=== PATIENT | male | born 1940 | race Caucasian/White ===

== ENCOUNTER 2019-03-14 16:49 | Inpatient (IN) | payer OTHER ==
[~2019-03-14] VITALS: Ht 182.9 cm; Wt 104.1 kg
[2019-03-14] MEDS ORDERED: VANCOMYCIN PER PHARMACY MC ONE (17:00)
[2019-03-14] MEDS ORDERED: SODIUM CHLORIDE 0.9% 1,000ML IVBOLUS ONE ×2 (17:00→20:00)
[2019-03-14] MEDS ORDERED: PIPERACILLIN/TAZO/PMX 3.375GM 50 ML IVPB ONE (17:00)
--- NOTE | 2019-03-14 17:27 | NUR ---
PT PRESENTS WITH CONDOM CATH IN PLACE. BAG CONTAINS DARK CLOUDY URINE
[2019-03-14] MEDS ORDERED: PHARMACOKINETIC CONSULTATION MC ONE (17:30)
[2019-03-14 17:33] LABS: MEAN CORPUSCULAR HEMOGLOBIN 25.9 pg (27.5-34.5); MEAN CORPUSCULAR HGB CONC 32.6 g/dL (33.2-36.2); MEAN CORPUSCULAR VOLUME 79.3 fL (81-97); MEAN PLATELET VOLUME 7.7 fL (7.4-10.4); PLATELET COUNT 553 x10^3/uL (130-400); RED BLOOD COUNT 3.98 x10^6/uL (4.38-5.82); RED CELL DISTRIBUTION WIDTH 21.9 % (9.4-14.8)
[2019-03-14] MEDS ORDERED: PIPERACILLIN/TAZO/PMX 3.375GM 50 ML ONE (17:41)
[2019-03-14 17:46] LABS: INTERNATIONAL NORMALIZED RATIO 1.27 (0.93-1.1); PROTHROMBIN TIME 13.2 Seconds (9.6-11.5)
[2019-03-14 17:47] LABS: ALANINE AMINOTRANSFERASE 17 U/L (12-78); ALBUMIN 2.9 g/dL (3.4-5.0); ANION GAP 11 mmol/L (5-15); CALCIUM 8.7 mg/dL (8.5-10.1); CHLORIDE 95 mmol/L (98-107)
[2019-03-14 17:49] LABS: ALKALINE PHOSPHATASE 81 U/L (45-117); BILIRUBIN,TOTAL 0.7 mg/dL (0.2-1.0); TOTAL PROTEIN 6.4 g/dL (6.4-8.2)
[2019-03-14 17:53] LABS: CULTURE INDICATED? YES; MICROSCOPIC INDICATED
[2019-03-14] MEDS ORDERED: VANCOMYCIN 2,000 MG in SODIUM CHLORIDE 0.9% 500 ML IV ONE (18:00)
[2019-03-14 18:09] LABS: MD YES
[2019-03-14 18:11] LABS: BAND#(MANUAL) 1.44 x10^3/uL; BANDS%(MANUAL) 8 % (0-7); BASOS#(MANUAL) 0.18 x10^3/uL (0-0.1); BASOS% (MANUAL) 1 % (0-1); LYMPH#(MANUAL) 0.36 x10^3/uL (1-3.4); LYMPHS% (MANUAL) 2 % (22-44); MONOS#(MANUAL) 1.26 x10^3/uL (0.3-2.7); MONOS% (MANUAL) 7 % (2-9); SEG#(MANUAL) 14.76 x10^3/uL (1.8-6.8); SEGS% (MANUAL) 82 % (42-75)
[2019-03-14 18:12] LABS: ANISOCYTOSIS 2+; MICROCYTOSIS 1+
[2019-03-14 18:13] LABS: <PLATELET ESTIMATE> INCREASED; OVALOCYTES 1+
[2019-03-14 18:14] LABS: <PLT MORPHOLOGY> NORMAL PLT MORPH; POLYCHROMASIA 1+
--- NOTE | 2019-03-14 19:08 | NUR ---
per admitting provider 2nd ns bolus initiated
[2019-03-14] MEDS: SODIUM CHLORIDE 0.9% 1,000 ML IV SCH (19:09)
--- NOTE | 2019-03-14 19:18 | NUR ---
late note 1727 this pt bib [facility] was diverted by the [facility]. [facility] was told by the [facility] that they are full and have no admitting capability.
[2019-03-14] MEDS ORDERED: POLYETHYLENE GLYCOL 17 GM PACKET PO PRN (19:30)
[2019-03-14] MEDS ORDERED: ONDANSETRON ODT 4 MG PO PRN (19:30)
[2019-03-14] MEDS ORDERED: BISACODYL 10 MG SUPP PR PRN (19:30)
[2019-03-14 19:52] LABS: HEMOGLOBIN A1C 6.2 % (4.2-6.3)
[2019-03-14] MEDS ORDERED: CEFTRIAXONE PMX 1GM/50ML 50 ML IV SCH (20:00)
[2019-03-14 21:15] VITALS: BP 111/56
[2019-03-14] MEDS: HEPARIN 5,000 UNITS/ML, 1ML SQ SCH (22:53)
[2019-03-14] MEDS: ACETAMINOPHEN 325 MG TABLET PO PRN (22:53)
[2019-03-15 02:59] VITALS: BP 93/58
[2019-03-15 05:31] LABS: CHLORIDE 100 mmol/L (98-107)
[2019-03-15 05:34] LABS: MEAN CORPUSCULAR HEMOGLOBIN 25.9 pg (27.5-34.5); MEAN CORPUSCULAR HGB CONC 32.6 g/dL (33.2-36.2); MEAN CORPUSCULAR VOLUME 79.3 fL (81-97); MEAN PLATELET VOLUME 7.7 fL (7.4-10.4); PLATELET COUNT 529 x10^3/uL (130-400); RED BLOOD COUNT 3.65 x10^6/uL (4.38-5.82)
[2019-03-15 05:38] LABS: ALANINE AMINOTRANSFERASE 20 U/L (12-78); ALBUMIN 2.7 g/dL (3.4-5.0); ALKALINE PHOSPHATASE 78 U/L (45-117); ANION GAP 6 mmol/L (5-15); BILIRUBIN,TOTAL 0.8 mg/dL (0.2-1.0); CALCIUM 8.4 mg/dL (8.5-10.1); CREATININE 1.51 mg/dL (0.7-1.3); TOTAL PROTEIN 5.9 g/dL (6.4-8.2)
[2019-03-15 05:53] LABS: MD YES
[2019-03-15 05:55] LABS: BAND#(MANUAL) 0.59 x10^3/uL; BANDS%(MANUAL) 5 % (0-7); BASOS#(MANUAL) 0.12 x10^3/uL (0-0.1); BASOS% (MANUAL) 1 % (0-1); LYMPH#(MANUAL) 0.12 x10^3/uL (1-3.4); LYMPHS% (MANUAL) 1 % (22-44); MONOS#(MANUAL) 0.12 x10^3/uL (0.3-2.7); MONOS% (MANUAL) 1 % (2-9); SEG#(MANUAL) 10.86 x10^3/uL (1.8-6.8); SEGS% (MANUAL) 92 % (42-75)
[2019-03-15 05:56] LABS: <PLATELET ESTIMATE> INCREASED; <PLT MORPHOLOGY> NORMAL PLT MORPH; ANISOCYTOSIS 1+; MICROCYTOSIS 1+; OVALOCYTES 1+; POLYCHROMASIA 1+
[2019-03-15] MEDS: ACETAMINOPHEN 325 MG TABLET PO PRN (07:07)
[2019-03-15] MEDS: HEPARIN 5,000 UNITS/ML, 1ML SQ SCH ×2 (07:07→15:41)
[2019-03-15] MEDS: SODIUM CHLORIDE 0.9% 1,000 ML IV SCH ×2 (07:08→15:41)
[2019-03-15 08:18] VITALS: BP 125/69
[2019-03-15] MEDS: SENNA/DOCUSATE TABLET PO SCH (09:04)
[2019-03-15] MEDS: CEFTRIAXONE PMX 2GM/50ML 50 ML IV SCH (09:46)
[2019-03-15] MEDS: IRON SUCROSE COMPLEX 100MG/5ML IV SCH (09:46)
[2019-03-15 12:49] VITALS: BP 111/60
[2019-03-15] MEDS: INSULIN LISPRO 100 UNITS/ML, PEN SQ-INSULIN SCH ×2 (16:00→21:18)
[2019-03-15] MEDS ORDERED: ACET650T59 PO (16:06)
[2019-03-15] MEDS ORDERED: ASPI-515 PO (16:06)
[2019-03-15] MEDS ORDERED: ZOLP10TA5 PO (16:30)
[2019-03-15] MEDS ORDERED: NITR0.4T28 SL (16:30)
[2019-03-15] MEDS ORDERED: LORA-247 PO (16:30)
[2019-03-15] MEDS ORDERED: MENT3.5O EXT (16:30)
[2019-03-15] MEDS ORDERED: GABA600T7 PO (16:30)
[2019-03-15] MEDS ORDERED: DEXT15DR18 EACHEYE (16:30)
[2019-03-15] MEDS ORDERED: FINA5TAB4 PO (16:30)
[2019-03-15] MEDS ORDERED: METO25TA35 PO (16:30)
[2019-03-15] MEDS ORDERED: METF500T17 PO (16:30)
[2019-03-15] MEDS ORDERED: TAMS-11 PO (16:30)
[2019-03-15] MEDS ORDERED: OMEP-110 PO (16:30)
[2019-03-15] MEDS ORDERED: LISI40TA PO (16:30)
[2019-03-15] MEDS ORDERED: VENL75TA PO (16:30)
[2019-03-15] MEDS ORDERED: CALC1TAB62 PO (16:30)
[2019-03-15] MEDS ORDERED: GUAI200T3 PO (16:30)
[2019-03-15] MEDS ORDERED: DOCU100C33 PO (16:30)
[2019-03-15] MEDS ORDERED: METH500T7 PO (16:30)
[2019-03-15] MEDS ORDERED: MAGN420T PO (16:30)
[2019-03-15] MEDS ORDERED: OMEG1CAP25 PO (16:30)
[2019-03-15] MEDS ORDERED: ATOR10TA9 PO (16:30)
[2019-03-15] MEDS ORDERED: FERR324T5 PO (16:30)
[2019-03-15] MEDS: ARTIFICIAL TEARS 15 DROP/ML BOTTLE EACHEYE SCH ×2 (17:00→21:14)
[2019-03-15] MEDS ORDERED: ACETAMINOPHEN 325 MG TABLET PO PRN (17:00)
[2019-03-15 19:41] VITALS: BP 129/63
[2019-03-15] MEDS ORDERED: OMEGA-3/FISH OIL CAPSULE PO SCH (21:00)
[2019-03-15] MEDS: FERROUS GLUCONATE 324 MG TABLET PO SCH (21:14)
[2019-03-15] MEDS: METOPROLOL TARTRATE 25 MG TABLET PO SCH (21:15)
[2019-03-15] MEDS: ATORVASTATIN 10 MG TABLET PO SCH (21:15)
[2019-03-15] MEDS: GABAPENTIN 300 MG CAPSULE PO SCH (21:17)
[2019-03-15] MEDS: GUAIFENESIN 200 MG TABLET PO SCH (21:17)
[2019-03-15] MEDS: METHOCARBAMOL 500 MG TABLET PO SCH (21:17)
[2019-03-15] MEDS: ZOLPIDEM 10MG TABLET PO SCH (22:16)
[2019-03-16 00:19] VITALS: BP 114/81
[2019-03-16] MEDS: SODIUM CHLORIDE 0.9% 1,000 ML IV SCH ×3 (00:24→17:19)
[2019-03-16] MEDS: HEPARIN 5,000 UNITS/ML, 1ML SQ SCH ×3 (00:24→16:48)
[2019-03-16] MEDS: ARTIFICIAL TEARS 15 DROP/ML BOTTLE EACHEYE SCH ×4 (05:59→21:13)
[2019-03-16 06:14] LABS: MEAN CORPUSCULAR HEMOGLOBIN 25.7 pg (27.5-34.5); MEAN CORPUSCULAR HGB CONC 32.3 g/dL (33.2-36.2); MEAN CORPUSCULAR VOLUME 79.4 fL (81-97); MEAN PLATELET VOLUME 7.8 fL (7.4-10.4); PLATELET COUNT 471 x10^3/uL (130-400); RED BLOOD COUNT 3.54 x10^6/uL (4.38-5.82); RED CELL DISTRIBUTION WIDTH 21.9 % (9.4-14.8)
[2019-03-16 06:27] LABS: CHLORIDE 103 mmol/L (98-107)
[2019-03-16 06:33] LABS: ANION GAP 8 mmol/L (5-15); CREATININE 0.97 mg/dL (0.7-1.3)
[2019-03-16] MEDS: INSULIN LISPRO 100 UNITS/ML, PEN SQ-INSULIN SCH ×4 (07:00→21:15)
[2019-03-16 07:13] VITALS: BP 124/62
[2019-03-16 07:22] LABS: MD YES
[2019-03-16 07:23] LABS: BASOS#(MANUAL) 0.09 x10^3/uL (0-0.1); BASOS% (MANUAL) 1 % (0-1); EOS#(MANUAL) 0.09 x10^3/uL (0.0-0.4); EOS% (MANUAL) 1 % (1-7); LYMPH#(MANUAL) 0.35 x10^3/uL (1-3.4); LYMPHS% (MANUAL) 4 % (22-44); MONOS#(MANUAL) 0.44 x10^3/uL (0.3-2.7); MONOS% (MANUAL) 5 % (2-9); SEG#(MANUAL) 7.83 x10^3/uL (1.8-6.8); SEGS% (MANUAL) 89 % (42-75)
[2019-03-16 07:25] LABS: <PLATELET ESTIMATE> INCREASED; ANISOCYTOSIS 1+; LARGE PLATELETS 1+; MICROCYTOSIS 1+; OVALOCYTES 1+; POLYCHROMASIA 1+
[2019-03-16 07:26] LABS: TEAR DROPS 1+
[2019-03-16] MEDS ORDERED: ZINC OXIDE EXT SCH (09:00)
[2019-03-16] MEDS ORDERED: LISINOPRIL 40 MG TABLET PO SCH (09:00)
[2019-03-16] MEDS: SENNA/DOCUSATE TABLET PO SCH (09:00)
[2019-03-16] MEDS ORDERED: MENTHOL EXT SCH (09:00)
[2019-03-16] MEDS: CALCIUM CARBONATE 500 MG PO SCH (09:00)
[2019-03-16] MEDS: CEFTRIAXONE PMX 2GM/50ML 50 ML IV SCH (09:12)
[2019-03-16] MEDS: METOPROLOL TARTRATE 25 MG TABLET PO SCH ×2 (09:13→21:14)
[2019-03-16] MEDS: GABAPENTIN 300 MG CAPSULE PO SCH ×2 (09:13→21:14)
[2019-03-16] MEDS: OMEGA-3/FISH OIL CAPSULE PO SCH ×2 (09:14→21:13)
[2019-03-16] MEDS: METHOCARBAMOL 500 MG TABLET PO SCH ×2 (09:15→21:14)
[2019-03-16] MEDS: FINASTERIDE 5 MG TABLET PO SCH (09:15)
[2019-03-16] MEDS: GUAIFENESIN 200 MG TABLET PO SCH ×2 (09:16→21:14)
[2019-03-16] MEDS: DOCUSATE 100 MG CAPSULE PO SCH (09:16)
[2019-03-16] MEDS: MAGNESIUM OXIDE 400 MG TABLET PO SCH (09:17)
[2019-03-16] MEDS: TAMSULOSIN 0.4 MG CAP.ER.24H PO SCH (09:18)
[2019-03-16] MEDS: ASPIRIN 81 MG TABLET EC PO SCH (09:18)
[2019-03-16] MEDS: VENLAFAXINE 75MG TABLET PO SCH (09:18)
[2019-03-16] MEDS: FERROUS GLUCONATE 324 MG TABLET PO SCH ×2 (09:18→21:13)
[2019-03-16] MEDS: LORATADINE 10 MG TABLET PO SCH (09:19)
[2019-03-16] MEDS: OMEPRAZOLE 20 MG CAPSULE.DR PO SCH (09:19)
[2019-03-16] MEDS: IRON SUCROSE COMPLEX 100MG/5ML IV SCH (09:19)
[2019-03-16 13:03] VITALS: BP 108/61
[2019-03-16] MEDS ORDERED: METOPROLOL 1 MG/ML, 5ML ONE (18:05)
[2019-03-16] MEDS ORDERED: METOPROLOL 1 MG/ML, 5ML IVPush ONE (18:30)
[2019-03-16 18:33] VITALS: BP 113/70
[2019-03-16 18:39] LABS: TROPONIN I < 0.015 ng/mL (0.000-0.045)
[2019-03-16 20:04] VITALS: BP 109/65
[2019-03-16] MEDS ORDERED: METOPROLOL 1 MG/ML, 5ML IVPush STA (20:51)
[2019-03-16 21:08] VITALS: BP 117/69
[2019-03-16] MEDS: ATORVASTATIN 10 MG TABLET PO SCH (21:14)
[2019-03-16] MEDS: ACETAMINOPHEN 325 MG TABLET PO PRN (22:25)
[2019-03-16] MEDS: ZOLPIDEM 10MG TABLET PO SCH (22:26)
[2019-03-17 01:14] VITALS: BP 98/64
[2019-03-17] MEDS: HEPARIN 5,000 UNITS/ML, 1ML SQ SCH ×3 (01:54→17:53)
[2019-03-17] MEDS ORDERED: FUROSEMIDE 20 MG/2 ML IV ONE (02:00)
[2019-03-17 02:47] VITALS: BP 98/62
[2019-03-17] MEDS: ARTIFICIAL TEARS 15 DROP/ML BOTTLE EACHEYE SCH ×4 (05:52→21:59)
[2019-03-17 05:56] LABS: ANION GAP 7 mmol/L (5-15); CALCIUM 8.3 mg/dL (8.5-10.1); CHLORIDE 102 mmol/L (98-107)
[2019-03-17 05:57] LABS: CREATININE 0.96 mg/dL (0.7-1.3)
[2019-03-17 06:37] LABS: MD YES; MEAN CORPUSCULAR HEMOGLOBIN 25.6 pg (27.5-34.5); MEAN CORPUSCULAR HGB CONC 32.6 g/dL (33.2-36.2); MEAN CORPUSCULAR VOLUME 78.3 fL (81-97); PLATELET COUNT 489 x10^3/uL (130-400); RED BLOOD COUNT 3.77 x10^6/uL (4.38-5.82); RED CELL DISTRIBUTION WIDTH 21.7 % (9.4-14.8)
[2019-03-17 06:40] LABS: BAND#(MANUAL) 0.24 x10^3/uL; BANDS%(MANUAL) 3 % (0-7); BASOS#(MANUAL) 0.16 x10^3/uL (0-0.1); BASOS% (MANUAL) 2 % (0-1); EOS#(MANUAL) 0.32 x10^3/uL (0.0-0.4); EOS% (MANUAL) 4 % (1-7); LYMPH#(MANUAL) 0.56 x10^3/uL (1-3.4); LYMPHS% (MANUAL) 7 % (22-44); MEAN PLATELET VOLUME 7.8 fL (7.4-10.4); MONOS#(MANUAL) 0.24 x10^3/uL (0.3-2.7); MONOS% (MANUAL) 3 % (2-9); SEG#(MANUAL) 6.48 x10^3/uL (1.8-6.8); SEGS% (MANUAL) 81 % (42-75)
[2019-03-17 06:41] LABS: ANISOCYTOSIS 1+; MICROCYTOSIS 1+; OVALOCYTES 1+; POLYCHROMASIA 1+
[2019-03-17 06:43] LABS: <PLATELET ESTIMATE> INCREASED; LARGE PLATELETS 1+
[2019-03-17] MEDS: INSULIN LISPRO 100 UNITS/ML, PEN SQ-INSULIN SCH ×4 (07:00→21:58)
[2019-03-17 07:10] VITALS: BP 105/64
[2019-03-17] MEDS: DOCUSATE 100 MG CAPSULE PO SCH (09:00)
[2019-03-17] MEDS: CALCIUM CARBONATE 500 MG PO SCH (09:00)
[2019-03-17] MEDS: SENNA/DOCUSATE TABLET PO SCH (09:00)
[2019-03-17] MEDS: METOPROLOL TARTRATE 25 MG TABLET PO SCH ×3 (09:00→21:59)
[2019-03-17] MEDS: OMEPRAZOLE 20 MG CAPSULE.DR PO SCH (09:51)
[2019-03-17] MEDS: CEFTRIAXONE PMX 2GM/50ML 50 ML IV SCH (09:51)
[2019-03-17] MEDS: GABAPENTIN 300 MG CAPSULE PO SCH ×2 (09:51→21:58)
[2019-03-17] MEDS: FERROUS GLUCONATE 324 MG TABLET PO SCH ×2 (09:51→21:58)
[2019-03-17] MEDS: OMEGA-3/FISH OIL CAPSULE PO SCH ×2 (09:53→21:58)
[2019-03-17] MEDS: LORATADINE 10 MG TABLET PO SCH (09:53)
[2019-03-17] MEDS: TAMSULOSIN 0.4 MG CAP.ER.24H PO SCH (09:53)
[2019-03-17] MEDS: METHOCARBAMOL 500 MG TABLET PO SCH ×2 (09:53→21:58)
[2019-03-17] MEDS: IRON SUCROSE COMPLEX 100MG/5ML IV SCH (09:54)
[2019-03-17] MEDS: ASPIRIN 81 MG TABLET EC PO SCH (09:56)
[2019-03-17] MEDS: LISINOPRIL 5 MG TABLET PO SCH (09:57)
[2019-03-17] MEDS: GUAIFENESIN 200 MG TABLET PO SCH ×2 (09:57→21:58)
[2019-03-17] MEDS: VENLAFAXINE 75MG TABLET PO SCH (09:57)
[2019-03-17] MEDS: MAGNESIUM OXIDE 400 MG TABLET PO SCH (09:57)
[2019-03-17] MEDS: FINASTERIDE 5 MG TABLET PO SCH (09:57)
[2019-03-17] MEDS ORDERED: DIGOXIN 0.25 MG/ML, 2ML IVPush ONE (11:30)
[2019-03-17] MEDS ORDERED: ADENOSINE 6 MG/2 ML IVPush ONE ×2 (11:30)
[2019-03-17 12:20] VITALS: BP 107/73
[2019-03-17] MEDS ORDERED: FILTER 0.22 MICRON IV PRN (12:30)
[2019-03-17] MEDS ORDERED: MAGNESIUM SULFATE PMX 2GM/50ML 50 ML IV ONE (12:30)
[2019-03-17] MEDS ORDERED: AMIODARONE 150 MG in DEXTROSE 5% 100 ML IV ONE (12:30)
[2019-03-17 15:37] VITALS: BP 134/62
[2019-03-17] MEDS: AMIODARONE IN D5W 200 ML IV PRN (15:49)
[2019-03-17 20:56] VITALS: BP 125/67
[2019-03-17] MEDS: ATORVASTATIN 10 MG TABLET PO SCH (21:58)
[2019-03-17] MEDS: ZOLPIDEM 10MG TABLET PO SCH (21:58)
[2019-03-18] MEDS: HEPARIN 5,000 UNITS/ML, 1ML SQ SCH ×3 (02:44→17:05)
[2019-03-18 02:47] VITALS: BP 133/65
[2019-03-18] MEDS: AMIODARONE IN D5W 200 ML IV PRN (02:48)
[2019-03-18 05:34] LABS: MEAN CORPUSCULAR HEMOGLOBIN 25.7 pg (27.5-34.5); MEAN CORPUSCULAR HGB CONC 32.5 g/dL (33.2-36.2); MEAN CORPUSCULAR VOLUME 78.9 fL (81-97); MEAN PLATELET VOLUME 8.1 fL (7.4-10.4); PLATELET COUNT 534 x10^3/uL (130-400); RED BLOOD COUNT 3.64 x10^6/uL (4.38-5.82); RED CELL DISTRIBUTION WIDTH 21.4 % (9.4-14.8)
[2019-03-18 05:48] LABS: CHLORIDE 101 mmol/L (98-107)
[2019-03-18 06:02] LABS: BASOPHILS # (AUTO) 0.05 x10^3/uL (0-0.1); BASOPHILS % (AUTO) 1 % (0-1); EOSINOPHILS # (AUTO) 0.23 x10^3/uL (0-0.4); EOSINOPHILS % (AUTO) 2 % (1-7); LYMPHOCYTES # (AUTO) 0.91 x10^3/uL (1-3.4); LYMPHOCYTES % (AUTO) 9 % (22-44); MD MORPH REVIEW ONLY; MONOCYTES # (AUTO) 0.58 x10^3/uL (0.2-0.8); MONOCYTES % (AUTO) 6 % (2-9); NEUTROPHILS % (AUTO) 83 % (42-75)
[2019-03-18 06:03] LABS: ANISOCYTOSIS 1+; MICROCYTOSIS 1+; OVALOCYTES 1+; POLYCHROMASIA 1+; TEAR DROPS 1+
[2019-03-18 06:05] LABS: <PLATELET ESTIMATE> INCREASED; LARGE PLATELETS 1+
[2019-03-18 06:07] LABS: ANION GAP 9 mmol/L (5-15); CALCIUM 8.3 mg/dL (8.5-10.1)
[2019-03-18] MEDS: INSULIN LISPRO 100 UNITS/ML, PEN SQ-INSULIN SCH ×4 (07:00→20:02)
[2019-03-18 07:54] VITALS: BP 120/60
[2019-03-18] MEDS: ARTIFICIAL TEARS 15 DROP/ML BOTTLE EACHEYE SCH ×4 (10:46→20:11)
[2019-03-18] MEDS: VENLAFAXINE 75MG TABLET PO SCH (10:47)
[2019-03-18] MEDS: FERROUS GLUCONATE 324 MG TABLET PO SCH ×2 (10:47→20:01)
[2019-03-18] MEDS: OMEGA-3/FISH OIL CAPSULE PO SCH ×2 (10:47→20:01)
[2019-03-18] MEDS: OMEPRAZOLE 20 MG CAPSULE.DR PO SCH (10:47)
[2019-03-18] MEDS: DOCUSATE 100 MG CAPSULE PO SCH (10:47)
[2019-03-18] MEDS: LORATADINE 10 MG TABLET PO SCH (10:48)
[2019-03-18] MEDS: METOPROLOL TARTRATE 25 MG TABLET PO SCH ×3 (10:48→20:02)
[2019-03-18] MEDS: TAMSULOSIN 0.4 MG CAP.ER.24H PO SCH (10:48)
[2019-03-18] MEDS: MAGNESIUM OXIDE 400 MG TABLET PO SCH (10:48)
[2019-03-18] MEDS: LISINOPRIL 5 MG TABLET PO SCH (10:48)
[2019-03-18] MEDS: GABAPENTIN 300 MG CAPSULE PO SCH ×2 (10:48→20:01)
[2019-03-18] MEDS: ASPIRIN 81 MG TABLET EC PO SCH (10:48)
[2019-03-18] MEDS: SENNA/DOCUSATE TABLET PO SCH (10:49)
[2019-03-18] MEDS: GUAIFENESIN 200 MG TABLET PO SCH ×2 (10:49→20:01)
[2019-03-18] MEDS: METHOCARBAMOL 500 MG TABLET PO SCH ×2 (10:49→20:01)
[2019-03-18] MEDS: FINASTERIDE 5 MG TABLET PO SCH (10:49)
[2019-03-18] MEDS: IRON SUCROSE COMPLEX 100MG/5ML IV SCH (13:10)
[2019-03-18] MEDS: AMIODARONE 200 MG TABLET PO SCH ×2 (13:10→20:01)
[2019-03-18] MEDS: CEFTRIAXONE PMX 2GM/50ML 50 ML IV SCH (13:11)
[2019-03-18 14:40] VITALS: BP 109/64
[2019-03-18 19:43] VITALS: BP 120/68
[2019-03-18] MEDS: ATORVASTATIN 10 MG TABLET PO SCH (20:01)
[2019-03-18] MEDS: ZOLPIDEM 10MG TABLET PO SCH (20:01)
[2019-03-19] MEDS: HEPARIN 5,000 UNITS/ML, 1ML SQ SCH ×3 (02:24→17:51)
[2019-03-19 02:59] VITALS: BP 123/65
[2019-03-19 07:22] LABS: MEAN CORPUSCULAR HEMOGLOBIN 25.4 pg (27.5-34.5); MEAN CORPUSCULAR HGB CONC 32.4 g/dL (33.2-36.2); MEAN CORPUSCULAR VOLUME 78.2 fL (81-97)
[2019-03-19 07:33] LABS: ANION GAP 5 mmol/L (5-15); CHLORIDE 103 mmol/L (98-107); CREATININE 0.85 mg/dL (0.7-1.3)
[2019-03-19 08:08] LABS: BASOPHILS # (AUTO) 0.18 x10^3/uL (0-0.1); BASOPHILS % (AUTO) 2 % (0-1); EOSINOPHILS # (AUTO) 0.37 x10^3/uL (0-0.4); EOSINOPHILS % (AUTO) 4 % (1-7); LYMPHOCYTES % (AUTO) 9 % (22-44); MD SCAN; MONOCYTES # (AUTO) 0.51 x10^3/uL (0.2-0.8); MONOCYTES % (AUTO) 5 % (2-9); NEUTROPHILS # (AUTO) 8.29 x10^3/uL (1.8-6.8); NEUTROPHILS % (AUTO) 81 % (42-75)
[2019-03-19 08:10] LABS: MEAN PLATELET VOLUME 7.8 fL (7.4-10.4); PLATELET COUNT 610 x10^3/uL (130-400)
[2019-03-19 08:23] VITALS: BP 150/55
[2019-03-19] MEDS: INSULIN LISPRO 100 UNITS/ML, PEN SQ-INSULIN SCH ×4 (09:24→21:06)
[2019-03-19] MEDS: GUAIFENESIN 200 MG TABLET PO SCH ×2 (09:25→21:05)
[2019-03-19] MEDS: OMEPRAZOLE 20 MG CAPSULE.DR PO SCH (09:25)
[2019-03-19] MEDS: SENNA/DOCUSATE TABLET PO SCH (09:25)
[2019-03-19] MEDS: OMEGA-3/FISH OIL CAPSULE PO SCH ×2 (09:25→21:05)
[2019-03-19] MEDS: VENLAFAXINE 75MG TABLET PO SCH (09:26)
[2019-03-19] MEDS: METHOCARBAMOL 500 MG TABLET PO SCH ×2 (09:26→21:05)
[2019-03-19] MEDS: AMIODARONE 200 MG TABLET PO SCH ×2 (09:26→21:07)
[2019-03-19] MEDS: GABAPENTIN 300 MG CAPSULE PO SCH ×2 (09:27→21:06)
[2019-03-19] MEDS: FINASTERIDE 5 MG TABLET PO SCH (09:27)
[2019-03-19] MEDS: METOPROLOL TARTRATE 25 MG TABLET PO SCH ×3 (09:27→21:06)
[2019-03-19] MEDS: DOCUSATE 100 MG CAPSULE PO SCH (09:27)
[2019-03-19] MEDS: LISINOPRIL 5 MG TABLET PO SCH (09:27)
[2019-03-19] MEDS: MAGNESIUM OXIDE 400 MG TABLET PO SCH (09:27)
[2019-03-19] MEDS: CALCIUM CARBONATE 500 MG TAB.CHEW PO SCH (09:28)
[2019-03-19] MEDS: LORATADINE 10 MG TABLET PO SCH (09:28)
[2019-03-19] MEDS: FERROUS GLUCONATE 324 MG TABLET PO SCH ×2 (09:28→21:06)
[2019-03-19] MEDS: TAMSULOSIN 0.4 MG CAP.ER.24H PO SCH (09:28)
[2019-03-19] MEDS: ARTIFICIAL TEARS 15 DROP/ML BOTTLE EACHEYE SCH ×4 (09:29→21:56)
[2019-03-19] MEDS: IRON SUCROSE COMPLEX 100MG/5ML IV SCH (09:42)
[2019-03-19 12:52] VITALS: BP 122/64
[2019-03-19] MEDS: CEFTRIAXONE PMX 2GM/50ML 50 ML IV SCH (12:59)
[2019-03-19 19:28] VITALS: BP 136/69
[2019-03-19] MEDS: ZOLPIDEM 10MG TABLET PO SCH (21:05)
[2019-03-19] MEDS: ATORVASTATIN 10 MG TABLET PO SCH (21:06)
[2019-03-20 01:23] VITALS: BP 143/66
[2019-03-20] MEDS: HEPARIN 5,000 UNITS/ML, 1ML SQ SCH ×2 (01:42→10:36)
[2019-03-20] MEDS: ARTIFICIAL TEARS 15 DROP/ML BOTTLE EACHEYE SCH ×3 (05:59→15:51)
[2019-03-20] MEDS: INSULIN LISPRO 100 UNITS/ML, PEN SQ-INSULIN SCH ×3 (07:00→15:51)
[2019-03-20 07:04] VITALS: BP 139/72
[2019-03-20] MEDS ORDERED: METOPROLOL SUCCINATE 50 MG TAB.ER.24H PO SCH (09:30)
[2019-03-20] MEDS: VENLAFAXINE 75MG TABLET PO SCH (09:54)
[2019-03-20] MEDS: MAGNESIUM OXIDE 400 MG TABLET PO SCH (09:54)
[2019-03-20] MEDS: DOCUSATE 100 MG CAPSULE PO SCH (09:54)
[2019-03-20] MEDS: CALCIUM CARBONATE 500 MG TAB.CHEW PO SCH (09:54)
[2019-03-20] MEDS: GABAPENTIN 300 MG CAPSULE PO SCH (09:55)
[2019-03-20] MEDS: OMEGA-3/FISH OIL CAPSULE PO SCH (09:57)
[2019-03-20] MEDS: OMEPRAZOLE 20 MG CAPSULE.DR PO SCH (09:57)
[2019-03-20] MEDS: SENNA/DOCUSATE TABLET PO SCH (09:57)
[2019-03-20] MEDS: METHOCARBAMOL 500 MG TABLET PO SCH (09:57)
[2019-03-20] MEDS: GUAIFENESIN 200 MG TABLET PO SCH (09:57)
[2019-03-20] MEDS: LORATADINE 10 MG TABLET PO SCH (09:58)
[2019-03-20] MEDS: TAMSULOSIN 0.4 MG CAP.ER.24H PO SCH (09:58)
[2019-03-20] MEDS: LISINOPRIL 5 MG TABLET PO SCH (09:58)
[2019-03-20] MEDS: FINASTERIDE 5 MG TABLET PO SCH (10:15)
[2019-03-20] MEDS: FERROUS GLUCONATE 324 MG TABLET PO SCH (10:15)
[2019-03-20] MEDS ORDERED: AMIODARONE 200 MG TABLET PO ONE (10:30)
[2019-03-20] MEDS ORDERED: AMIO200T42 PO (13:45)
[2019-03-20] MEDS ORDERED: METO-93 PO (13:45)
[2019-03-20] MEDS ORDERED: LISI5TAB7 PO (13:45)
[2019-03-20 13:59] VITALS: BP 100/53
[2019-03-20] MEDS: CEFTRIAXONE PMX 2GM/50ML 50 ML IV SCH (14:28)
[2019-03-21] MEDS ORDERED: AMIODARONE 200 MG TABLET PO SCH (09:00)
== END 2019-03-20 16:28 | DRG 871 ==
LOC: ED 19:10 → EDIP 19:14 → 4WST 20:55 → 5SO 03-17 12:14
PROVIDERS: ADMIT Family Medicine; ATTEND Family Medicine
PROC: 0T9B70Z Drainage of Bladder with Drainage Device, Via Natural or Artificial Opening (ICD-10-PCS; 2019-03-14)
PROC: 02HV33Z Insertion of Infusion Device into Superior Vena Cava, Percutaneous Approach (ICD-10-PCS; principal; 2019-03-18)
PROC: B548ZZA Ultrasonography of Superior Vena Cava, Guidance (ICD-10-PCS; 2019-03-18)
PROC: B5181ZA Fluoroscopy of Superior Vena Cava using Low Osmolar Contrast, Guidance (ICD-10-PCS; 2019-03-18)
DX: A41.9 Sepsis, unspecified organism (principal); N17.0 Acute kidney failure with tubular necrosis; R53.2 Functional quadriplegia; I50.43 Acute on chronic combined systolic (congestive) and diastolic (congestive) heart failure; D68.9 Coagulation defect, unspecified; N39.0 Urinary tract infection, site not specified; D68.59 Other primary thrombophilia; E87.1 Hypo-osmolality and hyponatremia; B96.20 Unspecified Escherichia coli [E. coli] as the cause of diseases classified elsewhere; D50.9 Iron deficiency anemia, unspecified; E11.42 Type 2 diabetes mellitus with diabetic polyneuropathy; E11.51 Type 2 diabetes mellitus with diabetic peripheral angiopathy without gangrene; E78.5 Hyperlipidemia, unspecified; E86.0 Dehydration; E87.5 Hyperkalemia; F03.90 Unspecified dementia, unspecified severity, without behavioral disturbance, psychotic disturbance, mood disturbance, and anxiety; F32.9 Major depressive disorder, single episode, unspecified; F43.10 Post-traumatic stress disorder, unspecified; G47.33 Obstructive sleep apnea (adult) (pediatric); I11.0 Hypertensive heart disease with heart failure; I25.10 Atherosclerotic heart disease of native coronary artery without angina pectoris; I25.5 Ischemic cardiomyopathy; I27.20 Pulmonary hypertension, unspecified; I37.1 Nonrheumatic pulmonary valve insufficiency; I44.7 Left bundle-branch block, unspecified; I48.91 Unspecified atrial fibrillation; N40.0 Benign prostatic hyperplasia without lower urinary tract symptoms; R65.20 Severe sepsis without septic shock; R32 Unspecified urinary incontinence; Z79.899 Other long term (current) drug therapy; I25.2 Old myocardial infarction; Z87.891 Personal history of nicotine dependence; Z95.1 Presence of aortocoronary bypass graft; Z99.3 Dependence on wheelchair; Z90.49 Acquired absence of other specified parts of digestive tract; Z89.422 Acquired absence of other left toe(s); Z89.421 Acquired absence of other right toe(s)
CPT/HCPCS: 36415; 36573; 71045; 76770; 80048; 80053; 81001; 82436; 82570; 82728; 82962; 83036; 83540; 83550; 83605; 83735; 83880; 84133; 84145; 84300; 84443; 84484; 85025; 85610; 87040; 87077; 87086; 87186; 93005; 93306; 96365; 99285; G0378; J0153; J0696; J1644; J1756; J2543; J3370; C1751; J0282; J1160; J1815; J1940; J3475; J7030; J7040